=== PATIENT | female | born 2000 | race Caucasian/White ===

== ENCOUNTER 2018-03-17 03:46 | Emergency (ER) | payer MEDICAID ==
[~2018-03-17] VITALS: Ht 147.3 cm; Wt 45.4 kg
== END 2018-03-17 04:44 | disposition home or self-care (01) ==
LOC: ER 03:48
DX: R06.02 Shortness of breath (principal); J45.909 Unspecified asthma, uncomplicated

== ENCOUNTER 2018-11-22 19:15 | Emergency (ER) | payer SELFPAY ==
[~2018-11-22] VITALS: Ht 147.3 cm; Wt 43.5 kg
[2018-11-22 19:34] VITALS: BP 98/59
[2018-11-22] MEDS ORDERED: ACETAMINOPHEN ES 500 MG TABLET ONE (19:53)
[2018-11-22] MEDS ORDERED: ACETAMINOPHEN ES 500 MG TABLET PO ONE (20:00)
== END 2018-11-22 20:13 | disposition home or self-care (01) ==
LOC: ER 19:18
DX: S09.8XXA Other specified injuries of head, initial encounter (principal); F17.200 Nicotine dependence, unspecified, uncomplicated; W20.8XXA Other cause of strike by thrown, projected or falling object, initial encounter; Y93.89 Activity, other specified; Y92.89 Other specified places as the place of occurrence of the external cause; Y99.0 Civilian activity done for income or pay